=== PATIENT | male | born 1965 | race Caucasian/White ===

== ENCOUNTER 2021-10-08 05:59 | Outpatient (REF) | payer OTHER, SELFPAY ==
--- NOTE | ~2021-10-08 | CT_ITS ---
EXAMINATION: CT ABDOMEN AND PELVIS WITH CONTRAST CLINICAL INFORMATION: Diarrhea. COMPARISON: None TECHNIQUE: Multidetector volumetric images were obtained from the superior aspect of the liver through the pubic symphysis following administration 85 mL of Omnipaque 350 intravenous contrast. Sagittal and coronal reformatted images were obtained on the technologist's workstation. Oral contrast: No This CT examination was performed using dose optimization techniques as appropriate, variously including the following: *Automated exposure control *Adjustment of mA and/or kV according to patient size (this includes techniques or standardized protocols for targeted exams where dose is matched to indication/reason for exam; i.e. extremities or head) *Use of iterative reconstruction technique DLP: 720 mGy-cm FINDINGS: LUNG BASES: The visualized lung bases are unremarkable. LIVER, GALLBLADDER, AND BILIARY TREE: Unremarkable. PANCREAS: Unremarkable. SPLEEN: Unremarkable. ADRENAL GLANDS: Unremarkable. KIDNEYS AND URETERS: The kidneys are normal in size, shape, and attenuation. No hydronephrosis, hydroureter, or calculi seen. No perinephric stranding. BLADDER: Unremarkable. GASTROINTESTINAL TRACT: The stomach, small bowel and appendix are unremarkable. The colon and rectum are unremarkable. ABDOMINAL WALL: Very small fat-containing umbilical hernia. LYMPH NODES: No lymphadenopathy. VASCULAR: Unremarkable. PELVIC VISCERA: Unremarkable. OSSEOUS STRUCTURES: Mild multilevel degenerative changes. No acute abnormality. CT/CT abdomen pelvis w con IMPRESSION: 1. No acute intra-abdominal/pelvic abnormality to explain the patient's symptoms. 2. Very small fat-containing umbilical hernia without associated abnormality Fleischner guidelines were followed.
[2021-10-08 08:12] LABS: Alanine Aminotransferase 28 U/L (0-40); Albumin Level 4.3 g/dL (3.5-5.0); Alkaline Phosphatase 59 U/L (39-117); Anion Gap 12 (12-20); Aspartate Amino Transferase 20 U/L (5-37); Bilirubin Total 0.9 mg/dL (0.0-1.0); Blood Urea Nitrogen 17 mg/dL (9-16); Calcium 9.1 mg/dL (8.4-10.2); Carbon Dioxide 29 mmol/L (22-29); Chloride 101 mmol/L (96-108); Estimated Glomerular Filt Rate > 60; Glucose Random 108 mg/dL (60-115); Potassium 4.6 mmol/L (3.3-5.1); Sodium 137 mmol/L (135-145); Total Protein 7.1 g/dL (6.5-8.0)
[2021-10-08] MEDS: iohexoL 350 MG/ML 100 ML INFUS..BTL 85 ML IV (09:11)
[2021-10-08] MEDS: Barium Sulfate Oral (Mocha) 450 ML ORAL.SUSP 900 ML PO (09:12)
== END 2021-10-08 06:00 | disposition home or self-care (01) ==
LOC: HO.CT 05:59
PROVIDERS: Absent Provider Internal Medicine; PCP Internal Medicine; Visit Provider Nurse Practitioner Family
DX: R19.7 Diarrhea, unspecified (principal); R10.9 Unspecified abdominal pain; R10.32 Left lower quadrant pain
CPT/HCPCS: 36415; 74177; 80053; Q9967

== ENCOUNTER → 2021-11-03 09:36 | Outpatient (BNVA) | payer OTHER, SELFPAY | PROVIDERS: PCP Internal Medicine; Visit Provider Physician Assistant | DX: S09.90XA Unspecified injury of head, initial encounter (principal); W22.8XXA Striking against or struck by other objects, initial encounter | CPT/HCPCS: 70450; 99204 ==

== ENCOUNTER → 2021-11-08 15:00 | Outpatient (BNVA) | payer OTHER, SELFPAY | PROVIDERS: PCP Internal Medicine; Visit Provider Physician Assistant Medical | DX: S09.90XA Unspecified injury of head, initial encounter (principal); W22.8XXA Striking against or struck by other objects, initial encounter | CPT/HCPCS: 99214 ==

== ENCOUNTER → 2021-11-15 13:25 | Outpatient (BNVA) | payer OTHER, SELFPAY | PROVIDERS: PCP Internal Medicine; Visit Provider Internal Medicine | DX: S06.0X0A Concussion without loss of consciousness, initial encounter (principal); W22.8XXA Striking against or struck by other objects, initial encounter | CPT/HCPCS: 99213 ==

== ENCOUNTER → 2021-11-23 11:23 | Outpatient (BNVA) | payer OTHER, SELFPAY | PROVIDERS: PCP Internal Medicine; Visit Provider Internal Medicine | DX: S09.90XD Unspecified injury of head, subsequent encounter (principal); W22.8XXD Striking against or struck by other objects, subsequent encounter | CPT/HCPCS: 99213 ==

== ENCOUNTER → 2021-11-30 10:28 | Outpatient (BNVA) | payer OTHER, SELFPAY | PROVIDERS: PCP Internal Medicine; Visit Provider Physician Assistant Medical | DX: S09.90XD Unspecified injury of head, subsequent encounter (principal); W22.8XXD Striking against or struck by other objects, subsequent encounter | CPT/HCPCS: 99213 ==

== ENCOUNTER → 2021-12-03 12:43 | Outpatient (BNVA) | payer OTHER, SELFPAY | PROVIDERS: PCP Internal Medicine; Visit Provider Physician Assistant | DX: S09.90XD Unspecified injury of head, subsequent encounter (principal); W22.8XXD Striking against or struck by other objects, subsequent encounter | CPT/HCPCS: 99213 ==

== ENCOUNTER → 2021-12-06 09:00 | Outpatient (BNVA) | payer OTHER, SELFPAY | PROVIDERS: PCP Internal Medicine; Visit Provider Physician Assistant Medical | DX: S09.90XD Unspecified injury of head, subsequent encounter (principal); W22.8XXD Striking against or struck by other objects, subsequent encounter | CPT/HCPCS: 99213 ==

== ENCOUNTER → 2021-12-08 10:29 | Outpatient (BNVA) | payer OTHER, SELFPAY | PROVIDERS: PCP Internal Medicine; Visit Provider Physician Assistant Medical | DX: S09.90XD Unspecified injury of head, subsequent encounter (principal); W22.8XXD Striking against or struck by other objects, subsequent encounter | CPT/HCPCS: 99213 ==

== ENCOUNTER → 2021-12-22 15:27 | Outpatient (BNVA) | payer OTHER, SELFPAY | PROVIDERS: PCP Internal Medicine; Visit Provider Physician Assistant | DX: S09.90XD Unspecified injury of head, subsequent encounter (principal); S05.91XD Unspecified injury of right eye and orbit, subsequent encounter; W22.8XXD Striking against or struck by other objects, subsequent encounter | CPT/HCPCS: 99213 ==

== ENCOUNTER → 2022-03-22 10:04 | Outpatient (BNVA) | payer SELFPAY | PROVIDERS: PCP Internal Medicine; Visit Provider Internal Medicine | DX: Z02.79 Encounter for issue of other medical certificate (principal) ==

== ENCOUNTER 2022-04-01 11:10 | Outpatient (REF) | payer OTHER, SELFPAY ==
[2022-04-01 12:57] LABS: Influenza A PCR NEGATIVE (Negative); Influenza B PCR NEGATIVE (Negative); Resp Syncy Virus RNA Qual PCR NEGATIVE (Negative); SARS COV2 PCR INHOUSE NEGATIVE (Negative)
== END 2022-04-01 11:11 | disposition home or self-care (01) ==
LOC: HO.LNP 11:10
PROVIDERS: Visit Provider Nurse Practitioner Family
DX: R09.89 Other specified symptoms and signs involving the circulatory and respiratory systems (principal); Z20.822 Contact with and (suspected) exposure to COVID-19
CPT/HCPCS: 0241U

== ENCOUNTER → 2022-05-04 09:12 | Outpatient (BNVA) | payer OTHER, SELFPAY | PROVIDERS: PCP Internal Medicine; Visit Provider Physician Assistant Medical | DX: S46.912A Strain of unspecified muscle, fascia and tendon at shoulder and upper arm level, left arm, initial encounter (principal); X50.3XXA Overexertion from repetitive movements, initial encounter | CPT/HCPCS: 73030; 99204 ==

== ENCOUNTER → 2022-05-11 10:22 | Outpatient (BNVA) | payer OTHER, SELFPAY | PROVIDERS: PCP Internal Medicine; Visit Provider Physician Assistant | DX: S46.912A Strain of unspecified muscle, fascia and tendon at shoulder and upper arm level, left arm, initial encounter (principal); X50.3XXA Overexertion from repetitive movements, initial encounter | CPT/HCPCS: 99213 ==

== ENCOUNTER → 2022-05-25 09:52 | Outpatient (BNVA) | payer OTHER, SELFPAY | PROVIDERS: PCP Internal Medicine; Visit Provider Physician Assistant Medical | DX: M25.512 Pain in left shoulder (principal) | CPT/HCPCS: 99213 ==

== ENCOUNTER 2022-05-27 08:02 | Outpatient (REF) | payer OTHER, SELFPAY ==
--- NOTE | ~2022-05-27 | MR_ITS ---
EXAMINATION: MR SHOULDER WITHOUT CONTRAST, LEFT CLINICAL INFORMATION: Left shoulder pain with motion. Decreased range of motion. Injury approximately 1 month ago. Pain with mild swelling. Left shoulder derangement, radicular symptoms. COMPARISON: Left shoulder radiographs dated 05/04/2022. TECHNIQUE: Multisequence MR imaging of the left shoulder was obtained without contrast on a high-field strength scanner. FINDINGS: ROTATOR CUFF: Mild supraspinatus tendinosis with probable fraying/partial tearing of the anterior leading edge. Mild subscapularis tendinosis with articular surface fraying/partial tearing. No measurable full-thickness rotator cuff tendon tear. Severe teres minor muscle atrophy. BICEPS: Intact. CORACOACROMIAL ARCH: The undersurface of the acromion is minimally curved with no subacromial spur. Mild acromioclavicular osteoarthritis. Mild fluid and edema within the subacromial-subdeltoid bursa, consistent mild bursitis. LABRUM/CAPSULE: Linear fluid signal within the undersurface of the posterior, posteroinferior, and inferior labrum, consistent with nondisplaced undersurface tearing. GLENOHUMERAL JOINT/MARROW: Inferior and posterior glenoid articular cartilage signal heterogeneity with areas of full-thickness fissuring and mild subchondral cystic change. Small marginal osteophytes. Small joint effusion. MR/MR shoulder LT wo con IMPRESSION: 1. Mild supraspinatus tendinosis with probable fraying/partial tearing of the anterior leading edge. Mild subscapularis tendinosis with articular surface fraying/partial tearing. Severe teres minor muscle atrophy. 2. Mild acromioclavicular osteoarthritis. Mild subacromial-subdeltoid bursitis. 3. Nondisplaced undersurface tearing of the posterior, posteroinferior, and inferior labrum. 4. Mild glenohumeral osteoarthritis and small joint effusion.
== END 2022-05-27 08:03 | disposition home or self-care (01) ==
LOC: HO.MRI 08:02
PROVIDERS: PCP Internal Medicine; Visit Provider Internal Medicine
DX: M54.10 Radiculopathy, site unspecified (principal)
CPT/HCPCS: 73221

== ENCOUNTER → 2022-06-01 09:04 | Outpatient (BNVA) | payer OTHER, SELFPAY | PROVIDERS: PCP Internal Medicine; Visit Provider Physician Assistant Medical | DX: S49.92XD Unspecified injury of left shoulder and upper arm, subsequent encounter (principal); X58.XXXD Exposure to other specified factors, subsequent encounter | CPT/HCPCS: 72050; 99215 ==

== ENCOUNTER → 2022-06-22 08:28 | Outpatient (BNVA) | payer OTHER, SELFPAY | PROVIDERS: PCP Internal Medicine; Visit Provider Physician Assistant | DX: S46.912D Strain of unspecified muscle, fascia and tendon at shoulder and upper arm level, left arm, subsequent encounter (principal); X50.3XXD Overexertion from repetitive movements, subsequent encounter | CPT/HCPCS: 99213 ==

== ENCOUNTER 2022-06-29 07:07 | Outpatient (REF) | payer OTHER, SELFPAY ==
--- NOTE | ~2022-06-29 | XR_ITS ---
EXAMINATION: XR SHOULDER, LEFT CLINICAL INFORMATION: Pain left shoulder COMPARISON: None available. TECHNIQUE: Three views of the left shoulder. FINDINGS: There is old healed mid clavicular fracture. AC joint is normal. No acute fracture, dislocation or subluxation seen. The soft tissues are normal. XR/XR shoulder LT min 2V IMPRESSION: Old healed mid clavicular fracture. No acute fracture or dislocation seen.
== END 2022-06-29 07:08 | disposition home or self-care (01) ==
LOC: HO.HOSX 07:07
PROVIDERS: Visit Provider Physician Assistant
DX: M19.012 Primary osteoarthritis, left shoulder (principal); M75.82 Other shoulder lesions, left shoulder; M24.112 Other articular cartilage disorders, left shoulder
CPT/HCPCS: 20610; 73030; 99202; J1040

== ENCOUNTER → 2022-08-03 09:27 | Outpatient (BNVA) | payer OTHER, SELFPAY | PROVIDERS: PCP Internal Medicine; Visit Provider Physician Assistant | DX: M19.012 Primary osteoarthritis, left shoulder (principal); M75.82 Other shoulder lesions, left shoulder; M24.112 Other articular cartilage disorders, left shoulder | CPT/HCPCS: 99212 ==

== ENCOUNTER 2022-08-30 07:00 | Outpatient (RCR) | payer OTHER, SELFPAY ==
--- NOTE | 2022-06-09 12:26 | MHC.PT.EP ---
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 HE IS Rt HAND DOMINANT. Lt SH 05/30/22 MRI REVEALED: FRAY / ? PARTAIL TEAR Lt SUPRASPINATUS AND SUBSCAP MM /LT TERES ATROPHY/ LABRAL NONDISPLACED POSTANDINF TEARING/BURSITIS/OA; H/O 2010 LEFT CLAVICULAR FX NON SURG REPAIR. Pt HAS BEEN OOW SINCE INJURY AND HE HAS AN ORTHO CONSULT 06/29/22. Pt HAS DECR ROM Lt SH, DECR POSTURAL AWARENESS, STRENGTH DEFICITS Lt SH COMPLEX, AND OVERALL DECR ADL MILIND/ PERFORMANCE W Lt UE- HE COMPENSATES BY USING Rt UE PREDOMINANTLY. Pt WOULD BENEFIT FROM PT TO ADDRESS POSTURE, SCAP STAB/POST RC ACTIV, Lt SH ROM AND STRENGTH PROGRESSION ABLE, AND EASE TISSUE IRRIT / DEV HEP /SX MGMT TECHN. Frequency and Duration: The patient will be seen 2 x WK x 6 WKS Short Term Goals: *DECREASE Lt SH PAIN TO 2-3/10 *Pt INDEP W SELF-CORRECT POSTURE AND ACTIV OF SCAP MM RETRACTION/DEPRESSORS *IMPROVE AAROM Lt SH, AROM / Lt GH AND SCAP STAB Directory Assistance Operator Goals: *Pt INDEP W HEP AND SELF-SX MGMT TECHN *IMPROVED ADL PERF EVIDENT W IMPROVED SPADI (AT EVAL 124/130) IN 12 WKS *Pt DEMON IMPROVED STRENGTH IN LEFT SH GIRDLE/ SCAP REGION (GENTLE PROGRESSION W RESPECT TO SUPRASPIN/ SUBSCAP/ TERES/LABRUM) Treatment Plan: Modalities to reduce pain, spasms and effusion. Manual therapy to restore motion and function. Therapeutic exercise to improve strength and flexibility. Neuromuscular re-education for posture and balance. Therapeutic activities to return to functional activities of daily living. Electronically signed by: EBONY PUENTE,PT Please sign and return to therapist. Thank you for your referral.
--- NOTE | 2022-08-30 13:25 | MHC.PT.DC ---
[facility] [place] Office [place] Office [place] Office [address] Bernie Gallegos [address] [phone] F: [phone] F: [phone] F: [phone] F: [phone] Physical Therapy Discharge Report Diagnosis: LEFT SHOULDER AND TRAP STRAIN Date of Surgery: Date of Evaluation: 06/09/22 Date of Discharge: 08/30/22 Treatments to Date: Cancellations to Date: 1 No Shows to Date: 0 Discharge Status: Achieved Goals Improved Function Independent with HEP Discharge Summary: THE Pt HAS PROGRESSED NICELY IN PT FOR HIS LEFT SHOULDER INJURY- HE HAS MET HIS STG AND LTG EVIDENT W IMPROVED SPADI SCORE OF 124/230 AT EVAL May AND 28/130 TODAY, ON August. HE REMAINS MOTIVATED AND COMPLIANT W HIS PROGRESSIVE HEP, HE DEMON INDEP SELF CORRECTION OF POSTURE AND OVERALL IMPROVED BODY MECHANICS W ADLs. THE Pt DISPLAYS GOOD AWARENESS OF SHOULDER CARE AND PROTECTION W ADLs AT THIS TIME. Electronically signed by: EBONY PUENTE,PT Please sign and return to therapist. Thank you for your referral.
== END 2022-08-30 13:26 | disposition home or self-care (01) ==
LOC: HO.PT 07:00
PROVIDERS: PCP Internal Medicine; Visit Provider Physician Assistant
DX: S76.012D Strain of muscle, fascia and tendon of left hip, subsequent encounter (principal); S46.912D Strain of unspecified muscle, fascia and tendon at shoulder and upper arm level, left arm, subsequent encounter
CPT/HCPCS: 97014; 97110; 97140; 97162; 97164; 97530

== ENCOUNTER → 2022-08-31 08:46 | Outpatient (BNVA) | payer OTHER, SELFPAY | PROVIDERS: PCP Internal Medicine; Visit Provider Physician Assistant | DX: M75.82 Other shoulder lesions, left shoulder (principal); M24.112 Other articular cartilage disorders, left shoulder; M19.012 Primary osteoarthritis, left shoulder | CPT/HCPCS: 99212 ==

== ENCOUNTER 2023-07-11 08:04 | Outpatient (AMB) | payer OTHER, SELFPAY ==
--- NOTE | 2023-07-11 08:07 | MHC.OFFWIV ---
Intake Vital Signs 07/11/23 08:14 Height 6 ft 8 in BP 130/94 H Blood Pressure Location Lt brachial Position Sitting Pulse 74 Pulse Source Pulse Oximeter Temp 97.9 F Temp Source Oral Pulse Oximetry (%) 96 Intake Visit Reasons: EP red face feels like BP high Intake Note: pt is here for possible BP issues, hes been having red face Patient Tobacco Use Status: Current someday Tobacco user Allergies No Known Allergies [No Known Allergies*] Allergy (Verified 07/11/23 08:14) Do you need a note to return to daycare/school/sports/work: Yes HPI HPI Comments History of Present Illness Details 58-year-old male comes in today complaining of concerns of high blood pressure due to erythematous change in his face. He also relates to having episode of increased edema 2 days ago that has since resolved. Patient also mentioned some mild chest discomfort that started on Monday that he does not describe his chest pain. 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 Review of Systems Const Reports no additional complaints and Reports weight loss (100 pounds in past year) Eyes Reports no additional complaints ENT Reports no additional complaints Card Reports pedal edema and Reports leg edema Resp Reports no additional complaints GI Reports no additional complaints Reports no additional complaints Musc Reports no additional complaints Physical Exam Vital Signs: Last Vital Signs Temp 97.9 F 07/11/23 08:14 Pulse 74 07/11/23 08:14 BP 130/94 H 07/11/23 08:14 Pulse Ox 96 07/11/23 08:14 Const General: healthy appearing and no acute distress HEENT Head: Yes normal to inspection, Yes normocephalic and Yes atraumatic Ears: hearing grossly impaired (Patient complains of hearing loss and tinnitus) bilaterally General nose exam: Abnormal external nose present nasal erythema Face and sinus: Yes erythema Eyes General: appearance normal, both eyes and all related structures Resp Effort & Inspection: normal respiratory effort and able to speak in complete sentences Auscultation: clear to auscultation bilaterally Cardio Rate: regular rate Rhythm: regular rhythm Heart sounds: S1 normal heart sound present and S2 normal heart sound present Extrem General: Yes no pedal edema Results Reviewed Results Reviewed: Discussed the findings of the EKG with the patient today. Assessment & Plan Assessment & Plan (1) High blood pressure determined by examination: Code(s): I10 - Essential (primary) hypertension Plan: The patient will by a home kit to record his blood pressures. I talked to Dr. Moreland regarding this patient who will see him in his office after the lab work is completed. He will bring those blood pressure readings to that visit. He is also instructed that if he develops severe chest pain to go to the emergency department Plan See plan Orders: Orders Lipid Panel Today I10 - Essential (primary) hypertension TSH reflex Free T4 Today I10 - Essential (primary) hypertension Complete Blood Count Auto Diff Today I10 - Essential (primary) hypertension Comprehensive Met. Panel Today I10 - Essential (primary) hypertension Medications: New amoxicillin 875 mg PO BID 7 days 14 tabs 0RF fluconazole administer on day 1, then repeat day 3 if necessary 150 mg PO DAILY 2 tabs 0RF Coding Level of Care Code Est Pt Level 4 (39900) Diagnoses High blood pressure determined by examination I10
[2023-07-11 08:14] VITALS: BP 130/94; PULSE 74; TEMP 36.6; O2SAT 96
== END 2023-07-11 09:11 | disposition home or self-care (01) ==
PROVIDERS: PCP Internal Medicine; Visit Provider Physician Assistant Medical
DX: I10 Essential (primary) hypertension (principal)
CPT/HCPCS: 99214

== ENCOUNTER 2023-07-11 09:11 | Outpatient (REF) | payer OTHER, SELFPAY ==
[2023-07-11 10:26] LABS: MANUAL DIFF FLAG NO
[2023-07-11 10:36] LABS: Basophils Percent Auto 0.5 % (0-2); Eosinophils Absolute Auto 0.1 X10*3/uL (0.0-0.4); Eosinophils Percent Auto 0.8 % (0-4); Hematocrit 53.1 % (42.0-52.0); Hemoglobin 17.4 g/dl (14.0-18.0); Imm Gran Abs Auto 0.02 X10*3/uL (0.00-0.03); Imm Gran Pct Auto 0.3 % (0.0-0.4); Lymphocytes Absolute Auto 1.4 X10*3/uL (1.2-4.9); Lymphocytes Percent Auto 22.1 % (20-40); Mean Corpuscular HGB Conc 32.8 g/dl (31.0-36.0); Mean Corpuscular Hemoglobin 30.1 pg (27.0-33.0); Mean Corpuscular Volume 91.7 fL (80.0-98.0); Mean Platelet Volume 9.5 fL (9.4-12.4); Monocytes Absolute Auto 0.7 X10*3/uL (0.1-1.2); Monocytes Percent Auto 10.5 % (2-11); Neutrophils Absolute Auto 4.2 x10*3/uL (2.0-8.3); Neutrophils Percent Auto 65.8 % (45-73); Platelet Count 227 X10*3/uL (160-400); Red Blood Count 5.79 X10*6/uL (4.60-5.80); Red Cell Distribution Width 12.5 % (11.0-16.0); White Blood Count 6.4 X10*3/uL (4.8-10.8)
[2023-07-11 12:02] LABS: Alanine Aminotransferase 32 U/L (0-40); Albumin Level 4.5 g/dL (3.5-5.0); Alkaline Phosphatase 48 U/L (39-117); Anion Gap 8 (12-20); Aspartate Amino Transferase 18 U/L (5-37); Bilirubin Total 0.7 mg/dL (0.0-1.0); Blood Urea Nitrogen 20 mg/dL (9-16); Calcium 9.8 mg/dL (8.4-10.2); Carbon Dioxide 32 mmol/L (22-29); Chloride 103 mmol/L (96-108); Cholesterol 225 mg/dL (<200); Estimated Glomerular Filt Rate > 60; Glucose Random 103 mg/dL (60-115); HDL Cholesterol 52 mg/dL (>40); LDL Cholesterol Calculated 138 mg/dL (<100); Potassium 4.1 mmol/L (3.3-5.1); Sodium 139 mmol/L (135-145); TSH reflex Free T4 1.24 uIU/mL (0.32-4.0); Total Protein 7.7 g/dL (6.5-8.0); Triglycerides 179 mg/dL (<150)
== END 2023-07-11 09:12 | disposition home or self-care (01) ==
LOC: HO.HMGCLDS 09:11
PROVIDERS: PCP Internal Medicine; Visit Provider Physician Assistant Medical
DX: I10 Essential (primary) hypertension (principal)
CPT/HCPCS: 36415; 80053; 80061; 84443; 85025

== ENCOUNTER 2023-07-18 12:43 | Outpatient (AMB) | payer OTHER, SELFPAY ==
--- NOTE | 2023-07-18 12:50 | A.OFFPC_ITS ---
Vital Signs 07/18/23 12:52 Height 6 ft 8 in Weight 278 lb 6 oz BMI 30.6 BP 130/82 Blood Pressure Location Lt brachial Position Sitting Intake Visit Reasons: Hypertension Intake Note: Patient is here to follow up on HTN. Envelope Machine Adjuster Required: No Mopper: Present Accompanied by: EX Spouse Allergies No Known Allergies [No Known Allergies*] Allergy (Verified 07/18/23 13:36) Medication List - Last Reconciled 07/18/23 by Pankaj Dodge MD amoxicillin 875 mg PO BID 7 days Tobacco use date assessed: 07/18/23 Dental Screening Dental Screen Date: 07/18/23 Did you have a dental visit in the last 12 months?: No Did you have a dental problem in the last 6 months where you did not have access to dental care?: No Was dental information given to patient?: No HPI Hypertension HPI Details 58-year-old male presents to the office to discuss his medical condition. Patient was in the walk-in last week not feeling well. He was diagnosed with an infection and started on amoxicillin. Incidentally his blood pressure was el evated. EKG showed a right bundle branch block. Patient is here for a follow- up. He is infection symptoms have subsided. He brings in the recordings of blood pressure from home. He brings in 20 readings and they are consistently in the normal range. Patient plans to return to work soon. Reports no symptoms of chest pain, shortness on breath or headaches. 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 1. Little interest or pleasure in doing things: not at all 2. Feeling down, depressed, or hopeless: not at all 3. Trouble falling or staying asleep, or sleeping too much: not at all 4. Feeling tired or having little energy: not at all 5. Poor appetite or overeating: not at all 6. Feeling bad about yourself - or that you are a failure or have let yourself or your family down: not at all 7. Trouble concentrating on things, such as reading the newspaper or watching television: not at all 8. Moving or speaking so slowly that other people could have noticed. Or the opposite - being so fidgety or restless that you have been moving around a lot more than usual: not at all 9. Thoughts that you would be better off or of hurting yourself in some way: not at all Total score: 0 Depression Screening Interpretation: Negative Depression Screening Done: Yes Source: Developed by Drs. Malik Ortiz, Lachelle Barclay, Aurelio Li and colleagues, with an educational aimee from [employer]. Thrive Questionnaire Date Thrive assessed: 07/18/23 I am a: Patient What is your living situation today?: I have a steady place to live Within the past 12 months, did the food you bought not last and you didn't have the money to get more?: Never true Within the past 12 months, did you worry whether your food would run out before you got money to buy more?: Never true Do you have trouble paying for medicines?: No Do you have trouble getting transportation to medical appointments?: No Do you have trouble paying your heating and electricity bill?: No Do you have trouble taking care of your child, family member or friend?: No Do you have trouble with day-to-day activities such as bathing, preparing meals, shopping, managing finances, etc.?: No Are you currently unemployed and looking for a job?: No Are you interested in more education?: No Currently or been in a relationship where the following occur: no concerns reported THRIVE Score: 0 AUDIT C Alcohol Use Questionnaire (AUDIT-C) 1. How often do you have a drink containing alcohol?: Never Total Score: 0 YAIR-7 AMB Questionnaire YAIR-7 Date YAIR - 7 assessed: 07/18/23 Feeling nervous, anxious, or on edge: 0 = Not at all Not being able to stop or control worryin = Not at all Worrying too much about different things: 0 = Not at all Trouble relaxin = Not at all Being so restless that it is hard to sit still: 0 = Not at all Becoming easily annoyed or irritable: 0 = Not at all Feeling afraid as if something awful might happen: 0 = Not at all Total YAIR-7 score (0-4 normal; 5-9 mild; 10-14 moderate; 15-21 severe): 0 Source: Developed by Drs. Malik Ortiz, Lachelle Barclay, Aurelio Li and colleagues, with an educational aimee from [employer]. Physical exam (Primary Care) Vital Signs: Last Vital Signs BP 130/82 07/18/23 12:52 Care Plan Goal for BP management: Blood pressure is in range. BMI result Body Mass Index 30.6 Tobacco/Smoking Status: Tobacco use Status Tobacco use date assessed 07/18/23 07/18/23 12:58 Patient Tobacco Use Status Former Tobacco user 07/18/23 12:58 Tobacco use type Cigar 07/18/23 12:58 e-Cigarette/Vaping Use Never Used 07/18/23 12:58 PHQ-9: PHQ-9 Score PHQ-9: Total score 0 07/18/23 12:58 Depression Screening Interpretation: Negative Thrive Assessment: Date of Thrive Assessment Date Thrive assessed 07/18/23 07/18/23 12:58 Currently or been in a relationship where the following occur: no concerns reported Const General: cooperative and healthy appearing Nutritional Appearance: well nourished Orientation/consciousness: patient oriented x3 Limitations: no limitations HENMT Head: Yes normal to inspection Eyes General: appearance normal, both eyes and all related structures Neck Neck: Yes normal visual inspection Chest Chest palpation & inspection: normal palpation of entire chest wall Resp Effort & Inspection: normal respiratory effort Neuro General: patient oriented x3 Assessment and Plan Assessment & Plan (1) High blood pressure determined by examination: Code(s): I10 - Essential (primary) hypertension Plan: No medications started. EKG done in the walk-in has to be compared with the prior EKG. Prior EKGs in a different computer system. I have asked for a copy of the same. Repeat blood work and office visit in 3 months. Coding Level of Care Code Est Pt Level 4 (52083) Diagnoses High blood pressure determined by examination I10
[2023-07-18 12:52] VITALS: BP 130/82; BMI 30.6
== END 2023-07-18 13:33 | disposition home or self-care (01) ==
PROVIDERS: PCP Internal Medicine; Visit Provider Internal Medicine
DX: I10 Essential (primary) hypertension (principal)
CPT/HCPCS: 99214

== ENCOUNTER 2024-01-28 10:42 | Emergency (ER) | payer OTHER, SELFPAY ==
--- NOTE | ~2024-01-28 | XR_ITS ---
EXAMINATION: XR FOOT, RIGHT CLINICAL INFORMATION: Injury COMPARISON: None available. TECHNIQUE: AP, lateral, and oblique views of the right foot. FINDINGS: There is an osseous density just medial to the navicular bone, this could be an accessory ossicle versus chip fracture. No other fractures. There are posterior and inferior calcaneal spurs. Heavy soft tissue calcifications of the plantar is. There are hammertoes. XR/XR foot RT min 3V IMPRESSION: 1. Small osseous density just medial to the navicular bone, this could be an accessory ossicle versus chip fracture. Please correlate with area of tenderness. 2. Hammertoes. 3. Calcaneal spurs. 4. Heavy plantar soft tissue calcification. Electronically signed by: Tyler Melendez MD 01/28/2024 12:44 PM SHANNON WALLACE
[2024-01-28 10:46] VITALS: BP 154/100; BP 165/96; PULSE 82; PULSE 91; RESP 16; TEMP 37.3; O2SAT 96; O2SAT 98; BMI 31.8
--- NOTE | 2024-01-28 11:18 | PC.NURSE ---
pt to xray at this time.
[2024-01-28] MEDS: Diphth,Pertus(ACell),Tet Adult 0.5 ML SYRINGE IM (11:24)
[2024-01-28] MEDS: Lidocaine HCl 1 % MPF 5 ML VIAL INFILTRATI (11:24)
--- NOTE | 2024-01-28 11:27 | PC.NURSE ---
tetanus shot administered per provider order. lidocaine vial scanned/placed on cart for provider convenience. xray results pending at this time. right foot remains uncovered. blood remains controlled. resting in no apparent distress. no sob/wob noted. respirations remain even/unlabored. plan of care ongoing. call montano placed within reach.
--- NOTE | 2024-01-28 11:45 | ED_ITS ---
HPI - Wound/Laceration General Chief Complaint: Wound/Laceration Stated Complaint: R TOE INJURY Time Seen by Provider: 01/28/24 10:57 Source: patient, family, EMS, RN notes reviewed and old records reviewed Mode of arrival: EMS History of Present Illness ED Provider: Babs Chase PA-C HPI narrative: 58-year-old male with a past medical history osteoarthritis, PVD, presenting to the ED via EMS complaining of laceration/injury to right foot s/p using jackhammer at home when it bounced onto foot. Tetanus unknown. Denies anticoagulation use. Denies numbness, tingling, injury to other area Related Data Previous Rx's ?Medication ?Instructions ?Recorded amoxicillin 875 mg tablet 875 mg PO BID 7 days #14 tabs 07/11/23 atorvastatin 10 mg tablet 10 mg PO BEDTIME #90 tabs 07/25/23 Allergies Allergy/AdvReac Type Severity Reaction Status Date / Time No Known Allergies Allergy Verified 01/28/24 10:51 [No Known Allergies*] Review of Systems 2 Review of Systems: Yes all other systems are reviewed and are negative Constitutional: Constitutional: Reports as per HPI [facility] Past Medical History Attestation statement: The following information was validated with the patient. 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 Cognitive needs: No Hearing needs: No Vision needs: Yes (Glasses) Physical Exam 2 Vital Signs: Vital Signs: Last Vital Signs Temp 98.1 F 01/28/24 12:25 Pulse 66 01/28/24 12:25 Resp 16 01/28/24 12:25 BP 137/85 01/28/24 12:25 Pulse Ox 97 01/28/24 12:25 O2 Del Method Room Air 01/28/24 12:25 BMI result Body Mass Index 31.8 Const: General: cooperative, healthy appearing and no acute distress O rientation/consciousness: patient oriented x3 Limitations: no limitations HEENT: Head: Yes normal to inspection and Yes atraumatic Ears: hearing grossly normal bilaterally General nose exam: Normal external nose present Face and sinus: Yes normal facial exam Eyes: General: appearance normal, both eyes and all related structures EOM: EOMs intact bilaterally Neck: Neck: Yes normal visual inspection and Yes no meningeal signs Resp: Effort & Inspection: normal respiratory effort and no respiratory distress Cardio: Rate: regular rate Skin: Rashes: no rashes Neuro: General: patient oriented x3, tone normal and no meningeal signs C ranial nerves: Yes CN's II-XII intact bilaterally Gait exam (Neuro): Normal gait present Extrem: Other: Please refer to images above. Laceration noted to 1st toe MTP. + appreciable extensor tendon rupture. Limited dorsiflexion (acute on chronically). NV intact distally/sensation intact to light touch Course Course Course Narrative: 1256--XR foot RT min 3V IMPRESSION: 1. Small osseous density just medial to the navicular bone, this could be an accessory ossicle versus chip fracture. Please correlate with area of tenderness. 2. Hammertoes. 3. Calcaneal spurs. 4. Heavy plantar soft tissue calcification. > unlikely acute fracture as injury is not near navicular bone. Patient nontender at navicular bone. -case was discussed with orthopedic JOHANNA Galarza who was in agreement. Small osseous density likely unrelated. Recommended wound closure and foot/ankle specialist follow-up Results discussed with patient including worrisome signs and symptoms and strict return precautions, and when to return to the emergency department. They verbalized understanding and feel safe for discharge at this time. Medications Administered Discontinued Medications Generic Name Dose Route Start Last Admin Trade Name Freq PRN Reason Stop Dose Admin Diphtheria/Tetanus/Acell Pertussis 0.5 ml 01/28/24 11:07 01/28/24 11:24 Diphth,Pertus(Acell),Tet Adult 0.5 Ml Syringe IM 01/28/24 11:08 0.5 ml .ONCE ONE Administration Lidocaine HCl 5 ml 01/28/24 11:12 01/28/24 11:24 Lidocaine Hcl 1 % Mpf 5 Ml Vial INFILTRATI 01/28/24 11:13 5 ml ONCE ONE Administration Medical Decision Making Medical Decision Making MDM Narrative: 58-year-old male with a past medical history osteoarthritis, PVD, presenting to the ED via EMS complaining of laceration/injury to right foot s/p using jackhammer at home when it bounced onto foot. On exam vital signs stable, NAD, nontoxic appearing, physical exam as noted above. Please refer to image. Concern for open fracture. Concern for laceration with extensor tendon rupture. No evidence of septic joint at this time Plan: X-ray, Tdap, repair wound vs transfer Please refer to course for remaining clinical decision making, interpretation of labs/imaging results, and discussions with consultants and/or family members. Differential Diagnosis Differential Diagnoses: The differential diagnosis associated with the presentation includes As above Admission/Observation Consideration of admission/observation: Escalation of care including admission/observation considered Lab Data [facility] Lab Attestation statement: I reviewed the patient's lab results. Independent Interpretation I performed an independent interpretation of an: Plain X-Ray Radiology Impression Discussion of test interpretation with radiology: I have reviewed the radiologist's reading. Independent Historian Clinical information obtained from an independent historian. History obtained from or confirmed by: EMS External Record Review External record reviewed: Inpatient record, Office record, Outpatient record, Prior outpatient labs, Prior outpatient radiology, Primary care record and Outside ED record Tests considered The following testing was considered but not selected: As above Prescription Management I considered prescription management with: Pain Medication and Antibiotic Chronic Conditions Patient?s care impacted by: Other Social Determinants Patient?s care significantly limited by Social Determinants of Health including: Other Social Determinant of Health Procedures Laceration Laceration 1: Site: lower extremity Side (If applicable): right Size (cm): 3 Description: irregular Depth: simple, single layer and involves tendon Local Anesthetic: lidocaine 1% Amount of anesthesia used (mL): 3 Pre-repair: wound explored and irrigated extensively Skin layer closed with: nylon Size (cm): 4-0 Number of sutures: 8 Technique: simple, interrupted Discharge Plan Discharge Clinical Impression: Laceration of extensor tendon of foot, Laceration of foot Patient Disposition: Home, Self-Care Prescriptions: No Action atorvastatin 10 mg tablet 10 mg PO BEDTIME Qty: 90 1RF amoxicillin 875 mg tablet 875 mg PO BID 7 Days Qty: 14 0RF Print Language: Luxembourgish
[2024-01-28 12:25] VITALS: BP 137/85; PULSE 66; RESP 16; TEMP 36.7; O2SAT 97
[2024-01-28 13:52] VITALS: BP 137/85; PULSE 66; RESP 16; TEMP 36.7; O2SAT 97
[2024-01-28] MEDS: Bacitracin Oint 0.9 GM PACKET 1 APPL TOPICAL (13:52)
--- NOTE | 2024-01-28 13:52 | PC.NURSE ---
bacitracin/nonstick abd pain/curex bandage applied to pt's right foot. tolerated well. wheelchair utilized for discharge.
== END 2024-01-28 14:00 | disposition home or self-care (01) ==
PROVIDERS: Emergency Provider Emergency Medicine; PCP Internal Medicine
DX: S91.111A Laceration without foreign body of right great toe without damage to nail, initial encounter (principal); M79.671 Pain in right foot; X58.XXXA Exposure to other specified factors, initial encounter; Y93.89 Activity, other specified; Y92.89 Other specified places as the place of occurrence of the external cause; Y99.8 Other external cause status; Z87.891 Personal history of nicotine dependence; Z23 Encounter for immunization
CPT/HCPCS: 12042; 73630; 90471; 90715; 99284; J2003

== ENCOUNTER 2024-02-06 08:02 | Outpatient (AMB) | payer OTHER, SELFPAY ==
--- NOTE | 2024-02-06 08:05 | AM.OFFWIN_ITS ---
Intake Vital Signs 02/06/24 08:06 Weight 281 lb BP 140/90 H Blood Pressure Location Lt brachial Position Sitting Pulse 85 Pulse Source Pulse Oximeter Pulse Oximetry (%) 96 Oxygen Delivery Method Room Air Intake Visit Reasons: EP need stitches remove from RT foot Intake Note: Patient here to have stitches out of right foot. states he has 8 stitches. Patient Tobacco Use Status: Former Tobacco user Allergies No Known Allergies [No Known Allergies*] Allergy (Verified 02/06/24 08:08) Do you need a note to return to daycare/school/sports/work: No HPI HPI Comments History of Present Illness Details Patient is a 58-year-old male who was Víctor hammering his back steps on January 27 when the jackhammer slipped and went through his boot. He went to the [facility] Emergency Department where they applied 8 sutures to his right foot, he was given Keflex and bacitracin to apply twice daily. He took the Keflex 4 times a day for 7 days and tells me it has been bleeding a little bit here and there but has not felt warm and has not oozed any yellow or claire liquid. 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 Cognitive needs: No Hearing needs: No Vision needs: Yes (Glasses) Review of Systems Const All systems reviewed & are unremarkable except as noted in HPI and below Physical Exam Vital Signs: Last Vital Signs Pulse 85 02/06/24 08:06 BP 140/90 H 02/06/24 08:06 Pulse Ox 96 02/06/24 08:06 Oxygen Delivery Method Room Air 02/06/24 08:06 Const General: cooperative, healthy appearing and no acute distress Orientation/consciousness: patient oriented x3 Limitations: no limitations HEENT Head: Yes normal to inspection and Yes atraumatic Ears: hearing grossly normal bilaterally General nose exam: Normal external nose present Face and sinus: Yes normal facial exam Eyes General: appearance normal, both eyes and all related structures EOM: EOMs intact bilaterally Neck Neck: Yes normal visual inspection and Yes no meningeal signs Resp Effort & Inspection: normal respiratory effort and no respiratory distress Cardio Rate: regular rate Skin Rashes: no rashes Neuro General: patient oriented x3, tone normal and no meningeal signs Cranial nerves: Yes CN's II-XII intact bilaterally Gait exam (Neuro): Normal gait present Extrem Other: Removed 8 sutures, after removal, patient still has a less deep Laceration noted to 1st toe MTP. Applied 3 Steri-Strips and applied skin adhesive to the ends of the Steri-Strips, did not put any skin adhesive on the wound + appreciable extensor tendon rupture. Limited dorsiflexion (acute on chronically). NV intact distally/sensation intact to light touch Assessment & Plan Assessment & Plan (1) Laceration of right foot: Code(s): S91.311A - Laceration without foreign body, right foot, initial encounter Qualifiers: Encounter type: initial encounter Qualified Code(s): S91.311A - Lac eration without foreign body, right foot, initial encounter Plan: Recommended patient stay out of work for this week so that his wound can heal [place]ja [place]. Recommended he follow up with ortho regarding possible tendon injury, referral has been sent. Recommended he follow-up for a wound check in 1 week with the that his PCP or coming back to this clinic. Advised he keep it clean and dry and apply bacitracin twice daily. (2) Injury of tendon of foot: Code(s): S96.909A - Unspecified injury of unspecified muscle and tendon at ankle and foot level, unspecified foot, initial encounter Plan: See above Plan See above Orders: Referrals Orthopedics Referral S91.311A - Laceration without foreign body, right foot, initial encounter, S96.909A - Unspecified injury of unspecified muscle and tendon at ankle and foot level, unspecified foot, initial encounter Coding Level of Care Code Est Pt Level 3 (92553) Diagnoses Laceration of right foot, initial encounter S91.311A Encounter type: initial encounter Injury of tendon of foot S96.909A
[2024-02-06 08:06] VITALS: BP 140/90; PULSE 85; O2SAT 96
== END 2024-02-06 08:52 | disposition home or self-care (01) ==
PROVIDERS: PCP Internal Medicine; Visit Provider Physician Assistant
DX: S91.311A Laceration without foreign body, right foot, initial encounter (principal); S96.90 Unspecified injury of unspecified muscle and tendon at ankle and foot level

== ENCOUNTER → 2024-03-15 14:21 | Outpatient (BNVA) | payer SELFPAY | PROVIDERS: PCP Internal Medicine; Visit Provider Registered Nurse | DX: Z02.79 Encounter for issue of other medical certificate (principal) ==

== ENCOUNTER 2025-03-10 05:38 | Emergency (ER) | payer BC, SELFPAY ==
--- NOTE | ~2025-03-10 | CT_ITS ---
EXAMINATION: CT ABDOMEN PELVIS WITH IV CONTRAST HISTORY: RLQ pain COMPARISON: There are no prior studies for available comparison. TECHNIQUE: CT scan of the abdomen and pelvis was performed following administration of 85 mL Omnipaque 350 using standard departmental protocol. Coronal and sagittal reformatted images were generated and reviewed. Oral contrast material was not administered at the request of the referring physician. This CT exam was performed with one or more of the following dose reduction techniques: automated exposure control, adjustment of the mA and/or kV according to patient size, use of iterative reconstruction technique. DLP: 802 mGy-cm FINDINGS: LOWER CHEST: There is minimal subsegmental atelectasis at both lung bases. There is no pleural effusion. CARDIOVASCULATURE: The heart is normal in size. There is no pericardial effusion. LIVER: The liver is normal in size and contour. No liver mass is identified. The hepatic and portal veins are patent. GALLBLADDER / BILE DUCTS: The gallbladder is unremarkable. There is no intra or extrahepatic biliary ductal dilatation. SPLEEN: The spleen is normal in size. No focal splenic lesion is identified. PANCREAS: The pancreas is unremarkable in appearance. ADRENAL GLANDS: Within normal limits. KIDNEYS/RETROPERITONEUM: No renal calculi are identified. There is no hydronephrosis. No renal masses are identified. LYMPH NODES: No abdominal or pelvic lymphadenopathy. VASCULATURE: The abdominal aorta is normal in caliber. MESENTERY/PERITONEUM: No free fluid. No masses. There is no free intraperitoneal gas. STOMACH: The stomach is collapsed, limiting evaluation. SMALL BOWEL: The small bowel is normal in caliber. COLON: There are scattered diverticula of the sigmoid colon, without evidence of diverticulitis. APPENDIX: Normal. URINARY BLADDER/PELVIC ORGANS: The urinary bladder is unremarkable. The prostate is normal in size. BONES / SOFT TISSUES: No suspicious bony or soft tissue abnormalities. CT/CT abdomen pelvis w IV con IMPRESSION: Diverticulosis of the descending and sigmoid colon, without evidence of diverticulitis. Otherwise unremarkable contrast-enhanced CT of the abdomen and pelvis. Electronically signed by: Malik Edwards MD 03/10/2025 08:17 AM [facility]
[2025-03-10 05:46] VITALS: BP 163/111; PULSE 82; RESP 20; TEMP 36.6; O2SAT 97; BMI 30.8
[2025-03-10 06:03] LABS: Hematocrit 50.3 % (42.0-52.0); Hemoglobin 16.6 g/dl (14.0-18.0); Imm Gran Abs Auto 0.03 X10*3/uL (0.00-0.03); Imm Gran Pct Auto 0.5 % (0.0-0.4); Lymphocytes Absolute Auto 1.5 X10*3/uL (1.2-4.9); MANUAL DIFF FLAG NO; Mean Corpuscular HGB Conc 33.0 g/dl (31.0-36.0); Mean Corpuscular Hemoglobin 30.3 pg (27.0-33.0); Mean Corpuscular Volume 91.8 fL (80.0-98.0); NRBC Abs Auto 0.000 X10*3/uL (0.0-0.012); NRBC Pct Auto 0.0 /100WBC (0.0-0.2); Platelet Count 209 X10*3/uL (160-400); Red Blood Count 5.48 X10*6/uL (4.60-5.80); White Blood Count 5.8 X10*3/uL (4.8-10.8)
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
[2025-03-10 06:21] LABS: Alanine Aminotransferase 26 U/L (0-40); Albumin Level 4.4 g/dL (3.5-5.0); Alkaline Phosphatase 54 U/L (39-117); Anion Gap 14 (12-20); Aspartate Amino Transferase 20 U/L (5-37); Blood Urea Nitrogen 14 mg/dL (9-16); Calcium 9.6 mg/dL (8.4-10.2); Carbon Dioxide 26 mmol/L (22-29); Chloride 105 mmol/L (96-108); Creatinine Clr Calc Pharmacy 120.7; Estimated Glomerular Filt Rate > 60; Potassium 4.6 mmol/L (3.3-5.1); Sodium 140 mmol/L (135-145); Total Protein 7.2 g/dL (6.5-8.0)
--- NOTE | 2025-03-10 06:31 | ED.ABDPAIN ---
HPI - Abdominal Pain General Chief Complaint: Abdominal Pain Stated Complaint: R Abd pain Time Seen by Provider: 03/10/25 05:59 Source: patient Mode of arrival: ambulatory Limitations: no limitations History of Present Illness ED Provider: SAMY HPI narrative: 60 yo Male with no significant past medical history does not take any daily medications, no prior abdominal surgery who presents with 3 days of abdominal discomfort, poor appetite, intermittent nausea, diarrhea that started on Monday and resolved after 24 hours. He denies any recent travel or sick contacts. He has not had any known fevers. He states last night the pain in the right lower quadrant was much worse and he was unable to sleep. He has not taken any [id number] pain medicine. He denies any urinary symptoms MD elicited complaint: abdominal pain Pertinent past history: none Onset (ago): day(s) (3) Pain Consistency: constant Location: RLQ Severity: moderate Quality: aching Radiation: none Migration to: no migration Exacerbating factors: nothing Relieving factors: nothing Context: other Associated symptoms: nausea Related Data Previous Rx's ?Medication ?Instructions ?Recorded atorvastatin 10 mg tablet 10 mg PO BEDTIME #90 tabs 07/25/23 bacitracin 500 unit/gram topical 1 appl topical BID #30 grams 01/28/24 ointment cephalexin 500 mg capsule 500 mg PO QID 7 days #28 caps 01/28/24 amoxicillin 875 mg-potassium 1 tab PO BID #10 tabs 03/10/25 clavulanate 125 mg tablet ondansetron 4 mg disintegrating 4 mg PO Q8H PRN nausea and 03/10/25 tablet vomiting #20 tabs Allergies Allergy/AdvReac Type Severity Reaction Status Date / Time No Known Allergies (No Known Allergy Verified 03/10/25 05:47 Allergies*) Review of Systems Review of Systems Yes all other systems are reviewed and are negative PMFSH Past Medical History Attestation statement: The following information was validated with the patient. 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 Oriented X3. No acute distress. Eyes: Pupils equal, round and reactive to light. ENT: Pharynx normal. Neck: Normal inspection. Neck supple. CVS: Normal heart rate and rhythm. Pulses normal. Respiratory: No respiratory distress. Breath sounds normal. Abdomen: Soft and moderate tenderness to palpation but no rebound and right lower quadrant no mass felt Skin: Skin warm and dry. Normal skin color. Normal skin turgor. Extremities: No lower extremity edema. No calf ttp Neuro: Oriented X 3. No motor deficit. No sensory deficit. Medical Decision Making Medical Decision Making [facility] Narrative: 60 yo Male with no significant past medical history here with complaint of right lower quadrant pain and resolved diarrhea this has been going on for 3 days. He has had poor appetite and nausea. At this time given his age and history I am going to obtain basic labs, urine, CT scan to assess for any acute pathology such as appendicitis. I have made the patient NPO. I am going to start him on IV Tylenol for pain. His pain is not out of proportion to suggest acute ischemia or ruptured AAA Differential Diagnosis Differential Diagnoses: The differential diagnosis associated with the presentation includes diverticular disease, constipation, renal colic, appendicitis, hernia Admission/Observation Consideration of admission/observation: Escalation of care including admission/observation considered Labs and CT scan are reassuring He does have diverticulosis I am going to start him on Augmentin at home I will send him home with precaution Lab Data [facility] Lab Attestation statement: I reviewed the patient's lab results. 03/10/25 05:57 03/10/25 05:57 Labs: Lab Results 03/10/25 03/10/25 Range/Units 05:57 08:39 WBC 5.8 (4.8-10.8) X10*3/uL RBC 5.48 (4.60-5.80) X10*6/uL Hgb 16.6 (14.0-18.0) g/dl Hct 50.3 (42.0-52.0) % MCV 91.8 (80.0-98.0) fL MCH 30.3 (27.0-33.0) pg MCHC 33.0 (31.0-36.0) g/dl RDW 12.6 (11.0-16.0) % Plt Count 209 (160-400) X10*3/uL MPV 9.3 L (9.4-12.4) fL Immature Gran % (Auto) 0.5 H (0.0-0.4) % Neut % (Auto) 59.7 (45-73) % Lymph % (Auto) 26.4 (20-40) % [place] % (Auto) 11.7 H (2-11) % Eos % (Auto) 1.2 (0-4) % Baso % (Auto) 0.5 (0-2) % Lymph # (Auto) 1.5 (1.2-4.9) X10*3/uL [place] # (Auto) 0.7 (0.1-1.2) X10*3/uL Eos # (Auto) 0.1 (0.0-0.4) X10*3/uL Baso # (Auto) 0.0 (0.0-0.2) X10*3/uL Abs Immat Gran (auto) 0.03 (0.00-0.03) X10*3/uL Absolute Neuts (auto) 3.5 (2.0-8.3) x10*3/uL Absolute Nucleated RBC 0.000 (0.0-0.012) X10*3/uL Nucleated RBC % (auto) 0.0 (0.0-0.2) /100WBC Sodium 140 (135-145) mmol/L Potassium 4.6 (3.3-5.1) mmol/L Chloride 105 (96-108) mmol/L Carbon Dioxide 26 (22-29) mmol/L Anion Gap 14 (12-20) BUN 14 (9-16) mg/dL Creatinine 1.01 (0.5-1.4) mg/dL Estim Creat Clear Calc 120.7 Estimated GFR > 60 Random Glucose 114 (60-115) mg/dL Calcium 9.6 (8.4-10.2) mg/dL Total Bilirubin 1.2 H (0.0-1.0) mg/dL AST 20 (5-37) U/L ALT 26 (0-40) U/L Alkaline Phosphatase 54 (39-117) U/L Total Protein 7.2 (6.5-8.0) g/dL Albumin 4.4 (3.5-5.0) g/dL Urine Color Yellow Urine Appearance Clear Urine pH 7.0 (5.0-9.0) Ur Specific [place] 1.020 (1.005-1.025) Urine Protein Negative (Neg-Trace) mg/dL Urine Glucose (UA) Negative (Negative) mg/dL Urine Ketones Negative (Negative) mg/dL Urine Blood Negative (Negative) Urine Nitrite Negative (Negative) Ur Leukocyte Esterase Negative (Negative) Independent Interpretation I performed an independent interpretation of an: CT Scan (No acute findings as cause of pain) Radiology Impression Discussion of test interpretation with radiology: I have reviewed the radiologist's reading. External Record Review External record reviewed: Outpatient record Prescription Management I considered prescription management with: Antibiotic Medications Administered Discontinued Medications Generic Name Dose Route Start Last Admin Trade Name Freq PRN Reason Stop Dose Admin Lactated Ringer's 1,000 mls @ 999 mls/hr 03/10/25 06:19 03/10/25 07:33 Lr IV 03/10/25 07:19 Infused .Q1H1M ONE Infusion Acetaminophen 1,000 mg in 100 mls @ 400 mls/hr 03/10/25 06:19 03/10/25 06:53 Ofirmev IV 03/10/25 06:33 Infused ONCE ONE Infusion Iohexol 100 ml 03/10/25 07:54 03/10/25 07:54 Iohexol 350 Mg/Ml 100 Ml Infus..Btl IV 03/10/25 07:55 85 ml ONCE ONE Administration Discharge Plan Discharge Clinical Impression: Abdominal pain Qualifiers: Abdominal location: right lower quadrant Qualified Code(s): R10.31 - Right lower quadrant pain Patient Disposition: Home, Self-Care Instructions: Abdominal Pain (ED) Additional Instructions: Your labs and urine are reassuring Your CT scan did not show any acute pathology but you do have diverticulosis there is no signs of infection or inflammation of this but given the area of pain you are having I think it would be beneficial to start on 5 days of antibiotics Please monitor your symptoms you can take Tylenol and Motrin as needed for pain Return for fevers greater than 100.4, inability to eat, worsening pain or any other concerns On amoxicillin, softer bowel movements are to be expected. Call your provider if you move your bowels more than 4 times a day, your bowel movements are almost all liquid, or you get a rash.? Prescriptions: New ondansetron 4 mg tablet,disintegrating 4 mg PO Q8H PRN (Reason: nausea and vomiting) Qty: 20 0RF amoxicillin-pot clavulanate 875-125 mg tablet 1 tab PO BID Qty: 10 0RF No Action atorvastatin 10 mg tablet 10 mg PO BEDTIME Qty: 90 1RF cephalexin 500 mg capsule 500 mg PO QID 7 Days Qty: 28 0RF bacitracin 500 unit/gram ointment 1 appl topical BID Qty: 30 0RF Stand Alone Forms: Work/School Release Print Language: Prydeinig
[2025-03-10] MEDS: Lactated Ringers 1,000 ML 999 ML IV (06:53)
[2025-03-10 07:30] VITALS: BP 139/89; PULSE 67; RESP 18; O2SAT 98
[2025-03-10] MEDS: iohexoL 350 MG/ML 100 ML INFUS..BTL IV (07:54)
[2025-03-10 08:46] LABS: Appearance Urine Clear; Glucose Urine UA Negative (Negative); PH 7.0 (5.0-9.0); Specific Gravity - Urine 1.020 (1.005-1.025)
[2025-03-10 09:09] VITALS: BP 131/91; PULSE 69; RESP 17; TEMP 36.8; O2SAT 97
[2025-03-10 09:19] VITALS: BP 131/91; PULSE 69; RESP 17; TEMP 36.8; O2SAT 97
== END 2025-03-10 09:19 | disposition home or self-care (01) ==
PROVIDERS: Emergency Provider Emergency Medicine; PCP Internal Medicine
DX: R10.31 Right lower quadrant pain (principal); R11.0 Nausea; Z87.891 Personal history of nicotine dependence
CPT/HCPCS: 36415; 74177; 80053; 81003; 85025; 96361; 96365; 99285; J0131; J7120; Q9967

== ENCOUNTER → 2025-03-10 06:19 | Outpatient (BNV) | payer BC, SELFPAY | PROVIDERS: Emergency Provider Emergency Medicine; PCP Internal Medicine; Visit Provider Radiology Diagnostic Radiology | DX: K57.30 Diverticulosis of large intestine without perforation or abscess without bleeding (principal) | CPT/HCPCS: 74177 ==